=== PATIENT | male | born 1960 ===

== ENCOUNTER 2024-07-07 10:14 | Outpatient (CLI) | payer BC, SELFPAY ==
--- NOTE | ~2024-07-07 | MR_ITS ---
EXAMINATION: MR shoulder LT wo con DATE: 07/07/2024 11:00 INDICATION: Chronic left shoulder pain TECHNIQUE: Magnetic resonance imaging (MRI) of the left shoulder was performed without intravenous co ntrast. Sequences included axial PD-weighted FS FSE, coronal oblique PD-weighted FS FSE, coronal obli que T2-weighted FS FSE, sagittal PD-weighted FS FSE, and sagittal T1-weighted SE. COMPARISON: None. FINDINGS: Coracoacromial arch: The acromion undersurface is curved in morphology (type II). Heterotopic ossification at the thickene d acromial side of the coracoacromial ligament. Mild to moderate acromioclavicular osteoarthritis. Rotator cuff: Moderate supraspinatus and infraspinatus tendinopathy with full-thickness tear involving all but a sm all portion of the anteriormost fibers of the supraspinatus tendon and posterior most infraspinatus t endon. The tear which occurs along the superior and middle facets of the greater tuberosity footplate measures 4 cm AP and 4.5 cm medial to lateral, both measured across the apex of the humeral head. Th e teres minor tendon is normal. Mild subscapular tendinopathy without tear. Normal rotator cuff muscl e bulk and signal. Biceps tendon, glenoid labrum and glenohumeral cartilage: Mild/moderate tendinopathy of the long head biceps tendon greatest at the junction of the internal ex tra articular portion of the tendon where there is also likely small longitudinal split tear. Small t ear at the 11:00 to 12:00 position of the superior glenoid labrum. Mild partial-thickness cartilage l oss with smooth chondral surface along the inferomedial and apical aspects of the humeral head. Gleno id cartilage appears relatively preserved. Fluid: Small glenohumeral joint effusion with proportional extension of a small amount of fluid along the lo ng head biceps tendon sheath and into the subacromial/subdeltoid bursa through the full-thickness rot ator cuff tear defect. There appears to be small amount of linear tenosynovitis along the long head b iceps tendon sheath. No loose osteochondral bodies. Bones: Normal marrow signal with no edema, fracture or abnormal marrow replacing process. IMPRESSION: 1. 4 x 4.5 cm full-thickness rotator cuff tear defect involving all but the anterior most supraspinat us and posterior most infraspinatus tendons. 2. Mild glenohumeral osteoarthritis with small tear at the posterior superior glenoid labrum. 3. Mild opacification bodies with mild to moderate tendinopathy and likely focal split tearing center ed at the junction of the intra and extra articular portions of the long head biceps tendon 4. Mild to moderate acromioclavicular osteoarthritis. Reviewed, dictated and finalized at location A. [facility] [employer] IMPRESSION: 1. 4 x 4.5 cm full-thickness rotator cuff tear defect involving all but the ant erior most supraspinatus and posterior most infraspinatus tendons. 2. Mild glenohumeral osteoarthritis with small tear at the posterior superior g lenoid labrum. 3. Mild opacification bodies with mild to moderate tendinopathy and likely foca l split tearing centered at the junction of the intra and extra articular porti ons of the long head biceps tendon 4. Mild to moderate acromioclavicular osteoarthritis.
== END 2024-07-07 10:15 | disposition home or self-care (01) ==
PROVIDERS: PCP Physician Assistant; Visit Provider Physician Assistant
DX: M19.012 Primary osteoarthritis, left shoulder (principal); M75.102 Unspecified rotator cuff tear or rupture of left shoulder, not specified as traumatic
CPT/HCPCS: 73221